=== PATIENT | female | born 1985 | race Caucasian/White ===

== ENCOUNTER → 2025-01-11 | Emergency (ER) | payer OTHER ==
[~2025-01-11] VITALS: Ht 157.5 cm; Wt 59.0 kg
[~2025-01-11] MED LIST: CIPRO500 MG PO; CIPROFLOXACIN HCL 500 MG TABLET PO ONE; LIDOCAINE HCL 1% 10ML VIAL ONE; LIDOCAINE HCL 1% 10ML VIAL PERCUT ONE; PEPCID AC20 MG PO; TETANUS & DIPHTHERIA TOX,ADULT 0.5 ML VIAL IM ONE; TETANUS DIPHTHERIA TOX. ADSOR 5 ML VIAL IM ONE
== END | disposition home or self-care (01) ==
LOC: ER 20:36
DX: S61.210A Laceration without foreign body of right index finger without damage to nail, initial encounter (principal); W26.0XXA Contact with knife, initial encounter; Y93.89 Activity, other specified; Y92.89 Other specified places as the place of occurrence of the external cause; Y99.8 Other external cause status; Z88.0 Allergy status to penicillin; Z88.2 Allergy status to sulfonamides
CPT/HCPCS: 12002; 90471; 90714; 96372; 99282; J1670